=== PATIENT | female | born 1995 | race Caucasian/White ===

== ENCOUNTER → 2017-07-13 | Outpatient (CLI) | payer OTHER, BC | LOC: BMCIMAGING 11:48 | PROVIDERS: ATTEND Emergency Medicine | DX: M54.2 Cervicalgia (principal); M54.5 Low back pain ==

== ENCOUNTER → 2018-03-12 | Outpatient (CLI) | payer BC, OTHER | LOC: BMCIMAGING 18:49 | PROVIDERS: ATTEND Family Medicine | DX: Z13.828 Encounter for screening for other musculoskeletal disorder (principal) ==

== ENCOUNTER → 2018-08-26 | Outpatient (CLI) | payer BC | LOC: BMCIMAGING 08:52 | PROVIDERS: ATTEND Internal Medicine | DX: M25.551 Pain in right hip (principal); M25.552 Pain in left hip; R20.2 Paresthesia of skin; Q65.89 Other specified congenital deformities of hip; M41.9 Scoliosis, unspecified ==